=== PATIENT | female | born 1985 | race Caucasian/White ===

== ENCOUNTER 2021-07-30 09:47 | Inpatient (IN) | payer BC ==
[~2021-07-30] VITALS: Ht 165.1 cm; Wt 85.0 kg
[2021-07-31] VITALS (17 sets, daily range): BP systolic 96–134; BP diastolic 49–76; PULSE 59–89; TEMP 98.3–98.9
--- NOTE | 2021-07-31 10:00 | NUR ---
1000-, 40 weeks gestation patient ambulates onto unit with spouse. Oriented to RM 220. Patient instructed to change into gown. EFM explained and applied. VS obtained. IV started to RH. Blood obtained and sent to lab. IVF running. Assessments completed. Consents explained and signed. Plan of care discussed.
[2021-07-31 10:29] LABS: BASO % 0.2 % (0.0-2.0); EOS % 0.2 % (0.0-4.0); GRAN # 7.1 K/mm3 (1.4-6.5); GRAN % 76.4 % (42.2-75.2); HEMOGLOBIN 11.3 g/dl (12.5-16.0); LYMPH # 1.5 K/mm3 (1.2-3.4); LYMPH % 15.6 % (20.0-51.0); MEAN CELL VOLUME 86 fl (80.0-100.0); MEAN CORPUSCULAR HEMOGLOBIN 28 pg (27-31); MEAN CORPUSCULAR HGB CONC 32 g/dl (33.0-37.0); MEAN PLATELET VOLUME 10.6 fl (7.4-10.4); MONO # 0.7 K/mm3 (0.1-0.6); PLATELET COUNT 233 K/mm3 (130-400); RED BLOOD COUNT 4.08 M/mm3 (4.10-5.30); REDCELL DISTRIBUTION WIDTH-CV 13.1 % (11.5-14.5)
[2021-07-31 10:30] LABS: HEMATOCRIT 35.1 % (37.0-47.0)
[2021-07-31] MEDS ORDERED: PRENATAL TABLET PO (10:36)
--- NOTE | 2021-07-31 17:30 | NUR ---
Patient assisted to edge of bed. Denies dizziness or lightheadedness. Stands by edge of bed. Unable to support weight on left leg. Pads changed and patient repositioned in bed.
[2021-08-01 04:00] VITALS: BP 110/67; PULSE 84; TEMP 98.4
[2021-08-01 07:28] LABS: BASO % 0.2 % (0.0-2.0); EOS % 0.1 % (0.0-4.0); GRAN # 14.4 K/mm3 (1.4-6.5); GRAN % 83.7 % (42.2-75.2); LYMPH # 1.5 K/mm3 (1.2-3.4); LYMPH % 8.9 % (20.0-51.0); MEAN CELL VOLUME 87 fl (80.0-100.0); MEAN CORPUSCULAR HGB CONC 33 g/dl (33.0-37.0); MONO # 1.1 K/mm3 (0.1-0.6); MONO % 6.4 % (1.7-9.3); PLATELET COUNT 216 K/mm3 (130-400); RED BLOOD COUNT 3.23 M/mm3 (4.10-5.30); REDCELL DISTRIBUTION WIDTH-CV 13.4 % (11.5-14.5)
[2021-08-01 07:29] LABS: HEMOGLOBIN 9.1 g/dl (12.5-16.0); MEAN CORPUSCULAR HEMOGLOBIN 28 pg (27-31)
[2021-08-01 07:55] LABS: ALBUMIN 2.3 gm/dL (3.5-5.0); BILIRUBIN,TOTAL 0.3 mg/dL (0.2-1.2); CALCIUM 8.8 mg/dL (8.4-10.2); CREATININE, serum 0.67 mg/dL (0.57-1.11); POTASSIUM 4.1 mmol/L (3.5-4.5); TOTAL PROTEIN 5.4 gm/dL (6.2-8.1)
[2021-08-01 08:00] VITALS: BP 117/71; PULSE 88; TEMP 97.9
[2021-08-01] MEDS ORDERED: IBU800 M1 PO ×2 (10:22)
[2021-08-01] MEDS ORDERED: PERCOCET 325 MG1 TA2 PO ×2 (10:22)
[2021-08-01 12:30] VITALS: BP 110/61; PULSE 91; TEMP 98.3
--- NOTE | 2021-08-01 13:03 | NUR ---
Medical Assembler offered congrats to patient and spouse.
[2021-08-01 16:50] VITALS: BP 122/74; PULSE 77; TEMP 98.5
[2021-08-01 19:00] VITALS: BP 123/77; PULSE 91; TEMP 98.7
[2021-08-02 08:15] VITALS: BP 106/64; PULSE 81; TEMP 98
[2021-08-02] MEDS ORDERED: IBU800 M1 PO (10:41)
[2021-08-02] MEDS ORDERED: PERCOCET 325 MG1 TA2 PO (10:41)
== END 2021-08-02 13:50 | disposition home or self-care (01) | DRG 788 ==
LOC: OB 07-31 09:38 → LDR 07-31 09:46 → OB 07-31 18:09
PROVIDERS: ADMIT Student in an Organized Health Care Education/Training Program
PROC: 10D00Z1 Extraction of Products of Conception, Low, Open Approach (ICD-10-PCS; principal; 2021-07-31)
DX: O34.211 Maternal care for low transverse scar from previous cesarean delivery (principal); O36.5930 Maternal care for other known or suspected poor fetal growth, third trimester, not applicable or unspecified; O99.344 Other mental disorders complicating childbirth; F32.A Depression, unspecified; F41.3 Other mixed anxiety disorders; O75.89 Other specified complications of labor and delivery; H40.9 Unspecified glaucoma; Z3A.40 40 weeks gestation of pregnancy; Z37.0 Single live birth; Z23 Encounter for immunization
CPT/HCPCS: J0690; J1100; J1885; J2405; J2590; J2765; J7120